=== PATIENT | female | born 1970 | race Caucasian/White ===

== ENCOUNTER 2019-08-21 10:40 | Emergency (ER) | payer BC ==
[2019-08-21 11:02] VITALS: BP 120/77
--- NOTE | 2019-08-21 11:44 | UC ---
Abdominal Pain Female HPI - HPI Summary HPI Summary: PATIENT COMPLAINS OF 2 WEEKS OF CONSTIPATION AND ABDOMINAL CRAMPING GETTING WORSE. STATES THAT SHE HAS HAD VERY SMALL PEBBLE-LIKE BOWEL MOVEMENTS AND SOME VERY SMALL PENCIL-LIKE BOWEL MOVEMENTS. OF NOTE SHE REPORTS HAVING A COLONOSCOPY THROUGH [facility] IN SUMMER 2018 WHICH SHE STATES WAS NORMAL. MATERNAL GRANDMOTHER HAS A HISTORY OF COLON CANCER. SHE HAS BEEN USING STOOL SOFTENERS AND LAXATIVES WITH NO IMPROVEMENT IN HER SYMPTOMS. ALSO COMPLAINS OF ONSET EARLY THIS MORNING OF MIDSTERNAL CHEST PAIN RADIATING TO HER LEFT ARM AND INTO HER NECK. NO SHORTNESS OF BREATH OR NAUSEA OR SWEATS. - History of Current Complaint Chief Complaint: UCChestPain Stated Complaint: CHEST PAIN Time Seen by Provider: 08/21/19 11:08 Hx Obtained From: Patient Onset/Duration: Gradual Onset, Lasting Weeks, Still Present Timing: Constant Severity Initially: Moderate Severity Currently: Moderate Pain Intensity: 1 Pain Scale Used: 0-10 Numeric Location: Diffuse Radiates: No Character: Cramping Aggravating Factor(s): Nothing Alleviating Factor(s): Nothing Associated Signs and Symptoms: Positive: Chest Pain, Constipation. Negative: Urinary Symptoms, Vomiting, Diarrhea Allergies/Adverse Reactions: Allergies Allergy/AdvReac Type Severity Reaction Status Date / Time prochlorperazine Allergy Intermediate Shakes Verified 08/21/19 11:02 [From Compazine] Home Medications: Home Medications NK [No Home Medications Reported] 08/21/19 [History Confirmed 08/21/19] PMH/Surg Hx/FS Hx/Imm Hx Previously Healthy: Yes - Surgical History Surgical History: Yes - Family History Family History: COLON CANCER - MGM - Social History Alcohol Use: None Substance Use Type: None Smoking Status (MU): Never Smoked Tobacco Review of Systems All Other Systems Reviewed And Are Negative: Yes Constitutional: Positive: Negative Respiratory: Positive: Negative Cardiovascular: Positive: Chest Pain Gastrointestinal: Positive: Other - CONSTIPATION Genitourinary: Positive: Negative Physical Exam Triage Information Reviewed: Yes Appearance: Well-Appearing, No Pain Distress, Well-Nourished Vital Signs: Initial Vital Signs Temp 98.4 F 08/21/19 10:58 Pulse 66 08/21/19 10:58 Resp 18 08/21/19 10:58 BP 120/77 08/21/19 10:58 Pulse Ox 99 08/21/19 10:58 Vital Signs Reviewed: Yes Eyes: Positive: Conjunctiva Clear ENT: Positive: Hearing grossly normal Neck: Positive: Supple, Nontender, No Lymphadenopathy Respiratory Exam: Normal Cardiovascular Exam: Normal Abdomen Description: Positive: Soft, Distended, Other: - DIFFUSELY TENDER. NO REBOUND OR RIGIDITY. Negative: CVA Tenderness (R), CVA Tenderness (L), Guarding Bowel Sounds: Positive: Present Musculoskeletal: Positive: No Edema Neurological: Positive: Alert Psychological: Positive: Age Appropriate Behavior Skin: Negative: Rashes Diagnostics - EKG Cardiac Rate: NL - 65BPM Cardiac Rhythm: Sinus: Normal Ectopy: None ST Segment: Normal Abd Pain Female Course/Dx - Course Course Of Treatment: PATIENT HAS DIFFUSE ABDOMINAL PAIN AND CONSTIPATION WITH CHANGE IN THE CALIBER OF HER BOWEL MOVEMENTS. SHE DID HAVE A COLONOSCOPY THROUGH [facility] ABOUT 6 MONTHS AGO WHICH SHE STATES WAS NORMAL HOWEVER GIVEN HER PRESENTATION I FEEL FURTHER EVALUATION IN THE EMERGENCY ROOM IS WARRANTED. ESPECIALLY IN LIGHT OF HER MIDSTERNAL CHEST PAIN RADIATING TO HER LEFT ARM THAT STARTED EARLY THIS MORNING. THIS MAY OR MAY NOT BE RELATED TO HER ABDOMINAL PAIN BUT AGAIN NEEDS FURTHER EVALUATION. PT OFFERED TRANSPORT TO THE ER BY AMBULANCE BUT DECLINES. ADVISED THAT BY NOT TRAVELING IN A MONITORED SETTING SHE COULD BE RISKING WORSENING OF HER CONDITION THAT COULD POSE A THREAT TO HER LIFE, HEALTH AND MEDICAL SAFETY. SHE VERBALIZES UNDERSTANDING AND CONTINUES TO DECLINE AMBULANCE TRANSFER. - Differential Dx/Diagnosis Provider Diagnosis: Constipation, Chest pain Discharge ED - Sign-Out/Discharge Documenting (check all that apply): Patient Departure All imaging exams completed and their final reports reviewed: No Studies - Discharge Plan Condition: Stable Disposition: TRANS HIGHER LVL OF CARE FAC Patient Education Materials: Chest Pain (ED), Abdominal Pain (ED) Print Language: [place] Referrals: [facility] [Provider Group] Additional Instructions: I'M CONCERNED ABOUT YOUR PERSISTENT ABDOMINAL PAIN AND CONSTIPATION ALONG WITH THE CHANGE IN THE CALIBER OF YOUR BOWEL MOVEMENTS. YOUR CHEST PAIN MAY OR MAY NOT BE RELATED TO YOUR ABDOMINAL PAIN. EITHER WAY I FEEL YOU REQUIRE A HIGHER LEVEL OF SERVICE THAN WHAT IS AVAILABLE IN THE URGENT CARE. GO DIRECTLY TO THE [facility] FROM HERE FOR FURTHER EVALUATION. YOU HAVE DECLINED TRANSFER TO THE ER BY AMBULANCE. BE ADVISED THAT BY NOT TRAVELING IN A MONITORED SETTING YOU COULD BE RISKING WORSENING OF YOUR CONDITION THAT COULD POSE A THREAT TO YOUR LIFE, HEALTH AND MEDICAL SAFETY. - Billing Disposition and Condition Condition: STABLE Disposition: Trans Higher Lvl of Care Fac
== END 2019-08-21 11:51 | disposition short-term general hospital (02) ==
LOC: UCEAST 10:40
DX: K59.00 Constipation, unspecified (principal); R07.9 Chest pain, unspecified; Z88.8 Allergy status to other drugs, medicaments and biological substances
CPT/HCPCS: 99202; G0463